=== PATIENT | female | born 1970 | race Caucasian/White ===

== ENCOUNTER → 2018-12-12 | Outpatient (CLI) | payer BC ==
[2018-12-14 15:07] LABS: HPV 16 Negative (Negative); HPV 18 Negative (Negative); HPV OTHER HR TYPES Negative (Negative)
== END | disposition home or self-care (01) ==
LOC: LAB SHORT 18:55 → LAB 18:55
PROVIDERS: Obstetrics & Gynecology Gynecology
DX: Z12.4 Encounter for screening for malignant neoplasm of cervix (principal)
CPT/HCPCS: 87624; G0123

== ENCOUNTER 2020-03-30 09:32 | Day surgery (SDC) | payer BC ==
[~2020-03-30] VITALS: Ht 170.2 cm; Wt 62.1 kg
[~2020-03-30 09:32] MED LIST: DULO30; Imitrex50 MG; LEVOTHYROXINE150 MC1; VENL75ER; ZOLP10; ZOLP12.5; ZOLP5 PO
== END 2020-03-30 10:53 | disposition home or self-care (01) ==
LOC: ORSCSDS 09:32
PROVIDERS: Internal Medicine Gastroenterology
PROC: 0DBN8ZX Excision of Sigmoid Colon, Via Natural or Artificial Opening Endoscopic, Diagnostic (ICD-10-PCS; principal; 2020-03-30 10:45)
DX: Z12.11 Encounter for screening for malignant neoplasm of colon (principal); D12.5 Benign neoplasm of sigmoid colon; K64.8 Other hemorrhoids; E03.9 Hypothyroidism, unspecified; J45.909 Unspecified asthma, uncomplicated; F41.8 Other specified anxiety disorders; Z79.899 Other long term (current) drug therapy
CPT/HCPCS: 88305; J2704; J7120